=== PATIENT | male | born 1970 | race Caucasian/White ===

== ENCOUNTER → 2018-05-20 | Outpatient (CLI) | payer BC, OTHER ==
[~2018-05-20] MED LIST: ADVAIR 500-501 EACH INH; AMBIEN 10 MG TA10 MG PO; DOXYCYCLINE 10100 MG PO; SINGULAIR 10 MG10 M1 PO; VENTOLIN HFA INH8 GM INH; VICODIN 5-5001 EACH PO
--- NOTE | 2018-05-21 08:37 | P ---
[facility] [place] [address] PROCEDURE REPORT Name: KAMRAN AQUINO [id number] Admission: 05/20/18 Attend Phys: Alexis Junior MD Discharge: Date of : 68 Report #: [id number] THIS REPORT FOR: //name// CC: Alexis Street DO BRIEF HISTORY: The patient is a 47-year-old male with multiple problems including left upper quadrant pain. He also has reflux disease and has a previous Angie fundoplication. In addition, he has intermittent solid-food dysphagia. He has common variable immune deficiency syndrome. He also has central sleep apnea. PREOPERATIVE DIAGNOSIS: Left upper quadrant pain and dysphagia. POSTOPERATIVE DIAGNOSES: 1. Mild bulbar duodenitis with a few small duodenal bulbar erosions. 2. Diffuse gastritis, previously noted. 3. Changes of Angie fundoplication. 4. Dysphagia. MEDICATIONS: Deep sedation with propofol per anesthesia. SPECIMEN: Small bowel biopsies to rule out Giardia. ESTIMATED BLOOD LOSS: 3 mL. PROCEDURE: EGD with biopsy, Strange dilation. FINDINGS: Prior to propofol sedation, procedure of upper endoscopy was discussed with the patient as well as potential risks and its complications. He indicates he understands and desires to proceed. DESCRIPTION OF PROCEDURE: With the patient in left lateral decubitus position, the Olympus video endoscope was inserted in the cervical esophagus under direct vision without difficulty. Examination of this organ through its entire length revealed normal esophageal mucosa down the squamocolumnar junction. Squamocolumnar junction was inspected and noted to be unremarkable. No strictures or masses were seen. Hiatus hernia was not seen. The scope was advanced into the stomach, was examined on end view as well as retroflexed views. There was a diffuse gastritis with linear striations in the antrum of the stomach. This has been noted previously and previous biopsies were negative for H. pylori and those were not repeated. On retroflexion, there were noted to be changes consistent with a Angie fundoplication. No other abnormalities were seen. The pylorus, duodenal bulb and postbulbar duodenal sweep were inspected. There were noted to be couple tiny erosions in the duodenal bulb. However, the duodenal sweep down the third portion was otherwise unremarkable. Due to his [facility] [address] [place] [address] PROCEDURE REPORT Name: KAMRAN AQUINO Room #: REG [facility] Jonna#: [id number] Admission: 05/20/18 Attend Phys: Alexis Junior MD Discharge: Date of : 68 Report #: [id number] history of common variable immune deficiency syndrome, biopsies were obtained of the small bowel in particular to evaluate for Giardia. At that point, scope was slowly withdrawn and careful circumferential views confirmed the above findings. The patient tolerated the procedure well. Subsequently, he was dilated with passage of a 52-Welsh Strange dilator. There was no resistance. CONDITION OF THE PATIENT UPON DISCHARGE: Following the procedure, the patient is drowsy and prepared for colonoscopy. INSTRUCTIONS TO THE PATIENT AND FAMILY AT THE TIME OF DISCHARGE: He has had a left upper quadrant pain. I do not see any lesions to explain his pain. We will place him on pantoprazole 40 mg daily empirically. If he has improvement, he may continue on a long-term basis. He is to return for dilation on an as-needed basis. We will proceed with colonoscopy at this time. <ELECTRONICALLY SIGNED> By: Alexis Junior MD 05/21/18 0837 1021 [id number] Alexis Junior MD /nt
--- NOTE | 2018-05-21 08:37 | P ---
[facility] [place] [address] PROCEDURE REPORT Name: KAMRAN AQUINO Room #: REG [facility].#: [id number] Admission: 05/20/18 Attend Phys: Alexis Junior MD Discharge: Date of : 68 Report #: [id number] THIS REPORT FOR: //name// CC: Alexis Blackwood BRIEF HISTORY: The patient is a 47-year-old male who has had a change in bowel habits. He has periods of constipation and also has periods of diarrhea. He reports intermittent rectal bleeding with blood per rectum about every third to fourth stools. PREOPERATIVE DIAGNOSES: 1. Change in bowel habits. 2. Rectal bleeding. POSTOPERATIVE DIAGNOSIS: Multiple colon polyps. MEDICATIONS: Deep sedation with propofol per anesthesia. SPECIMENS: 1. Cecal polyp. 2. Proximal transverse colon polyp. 3. Diminutive polyp at 60 cm. ESTIMATED BLOOD LOSS: 3 mL. PROCEDURE: Colonoscopy to cecum and terminal ileum with saline-assisted snare polypectomy and biopsy. FINDINGS: Prior to propofol sedation, procedure of colonoscopy discussed with the patient as well as potential risks and its complications. He indicates he understands and desires to proceed. DESCRIPTION OF PROCEDURE: With the patient in left lateral decubitus position, the Olympus video colonoscope was introduced in the rectum and advanced under direct vision to the cecum. Done with minimal difficulty. The cecum was identified by the ileocecal valve and the appendiceal orifice. I was able to visualize the distal segment of the terminal ileum, which was inspected and noted to be unremarkable. At that point, scope was slowly withdrawn and careful circumferential views were obtained. Upon slow withdrawal of the scope, the prep was excellent. The mucosa was within normal limits, normal vascular pattern, normal light reflex. Within the cecum, there was a flat irregular-shaped polyp that was about 8-10 mm in greatest dimension. It was elevated with saline and removed with a single pass by cold snare polypectomy. After polypectomy, the edges were inspected and noted to be free of polypoid tissue. There was good hemostasis. The scope was further withdrawn and in the [address] [address] PROCEDURE REPORT Name: KAMRAN AQUINO Room #: REG [facility] Coyle#: [id number] Admission: 05/20/18 Attend Phys: Alexis Junior MD Discharge: Date of : 68 Report #: [id number] proximal transverse colon, a 6-8 mm sessile polyp draped over the edge of a fold was removed by cold snare polypectomy. Scope was further withdrawn and in the descending colon at about 60 cm, a diminutive polyp was seen and removed with biopsy forceps. Scope was further withdrawn and no additional abnormalities were seen. Specifically in view of his change in bowel habits and rectal bleeding, there was no endoscopic evidence of inflammatory bowel disease. The polyps were too small to be responsible for significant rectal bleeding. Scope was withdrawn in the rectum. Upon retroflexion, no abnormalities were seen. Scope was withdrawn. The patient tolerated the procedure CONDITION OF THE PATIENT UPON DISCHARGE: Following procedure, the patient drowsy and will be discharged home when fully ambulatory. INSTRUCTIONS TO THE PATIENT AND FAMILY AT THE TIME OF DISCHARGE: Polyps removed as described above. We will follow up on the path report. If all 3 are adenomatous or serrated adenomas, he should return in 3 years, otherwise have him return in 5 years for followup colonoscopy. As far as his irregular bowel habits with bleeding, I do not find evidence of inflammatory bowel disease. We will also have him Linzess 290 mcg daily as needed for constipation. If he continues to have difficulties, return to see me in followup in the office. As far as the bleeding, it was likely coming from the anal canal and he may use a hemorrhoidal preparation as needed for management of anal canal lesions. He will otherwise return to the care of Dr. Trino Street. Withdrawal time from the cecum was 16 minutes 55 seconds including the polypectomies. <ELECTRONICALLY SIGNED> By: Alexis Junior MD 05/21/18 0837 1059 1116 Alexis Junior MD /nt
--- NOTE | 2018-05-24 17:06 | PATH ---
[facility] [place] [address] PATHOLOGY RPT PROCEDURE Name: LUIS AQUINO Room #: REG [facility] Danny.#: [id number] Admission: 05/20/18 Date of : 68 Discharge: Report #: [id number] Path Case #: [id number] [facility] Accession Number: [id number] . 01 Material submitted: . PART A: DUODENAL BIOPSY R/O GIARDIA (HX COMMON VARIABLE IMMUNE DEFICIENCY) PART B: CECAL POLYP PART C: PROXIMAL TRANSVERSE COLON POLYP PART D: COLON POLYP 60CM . 01 Clinical history: . Pre-OP DX: Change in bowel habits, rectal bleeding, Hx GERD, Hx colon polyps, dysphagia Post-OP DX: Duodenitis, gastritis, dysphagia, colon polyps, please refer to requisition for additional information . 02 Diagnosis: A. Small bowel mucosa, duodenum rule out Giardia, endoscopic biopsy: - Acute and active duodenitis with focal surface ulceration. - No organisms identified. - Negative for villous blunting or increase in intraepithelial lymphocytes. - Negative for dysplasia or malignancy. . B. Polyp, cecal polyp, endoscopic biopsy: - Tubular adenoma. - Negative for high grade dysplasia. . C. Polyp, proximal transverse polyp, endoscopic biopsy: - Hyperplastic polyp. - Negative for dysplasia. . D. Polyp, colon polyp 60 cm, endoscopic biopsy: - Tubular adenoma admixed with hyperplastic changes. - Negative for high grade dysplasia. LBQ/05/21/2018 . 02 Comment: Findings noted in the duodenum biopsy tissue are suggestive of nonspecific duodenitis with ulceration. There are no giardia or other parasitic organisms present. There are no granulomata or viral inclusions present. A Giemsa special stain is ordered on block A1 and it shows no definite Giardia or Giardia-like organisms. . Dr. Eulalio Hudson has seen medical field representative slide of Part A and concurs with my interpretation. (IUV/db; 05/21/2018) [address] [address] PATHOLOGY RPT PROCEDURE Name: LUIS AQUINO Room #: REG CLI Jonna#: [id number] Admission: 05/20/18 Date of : 68 Discharge: Report #: [id number] Path Case #: [id number] . 02 Electronically signed: . Emily Hernández MD, Pathologist NPI- [id number] . 01 Gross description: . A. Received in formalin labeled "Luis Aquino, duodenum biopsy, rule out Giardia," are multiple segments of neal soft tissue measuring 1.4 x 0.5 x 0.1 cm in aggregate dimensions. The specimen is filtered and entirely submitted in cassette A1. . B. Received in formalin labeled "Luis Aquino, cecal polyp," are 2 segments of neal soft tissue measuring 1.5 x 0.7 x 0.5 cm in aggregate dimensions and ranging from 0.5 to 0.8 cm in maximum dimension. The specimen is submitted entirely in cassette B1. . C. Received in formalin labeled "Luis Aquino, proximal transverse colon polyp," is a single segment of neal soft tissue measuring 0.6 cm in maximum dimension. The specimen is entirely submitted in cassette C1. . D. Received in formalin labeled "Luis Aquino, colon polyp 60 cm," is a single segment of neal soft tissue measuring 0.3 cm in maximum dimension. The specimen is entirely submitted in cassette D1. (TSD; 05/20/2018) TOB/TOB . 02 Pathologist provided ICD-10: K29.80, K26.9, D12.0, K63.5, D12.6 . 02 CPT . 463798, [id number], 506941, [id number], 916060 Specimen Comment: A courtesy copy of this report has been sent to Specimen Comment: [phone], . Specimen Comment: Report sent to / DR ALMONTE Performed at: [address], [place], [place] [id number] MD Saul Haddad MD Phone: [phone] Performed at: [address] [id number] MD Emily Hernández MD Phone: [phone]
== END | disposition home or self-care (01) ==
LOC: GI 08:46
DX: D12.0 Benign neoplasm of cecum (principal); D12.4 Benign neoplasm of descending colon; K63.5 Polyp of colon; K29.80 Duodenitis without bleeding; K26.9 Duodenal ulcer, unspecified as acute or chronic, without hemorrhage or perforation; R13.19 Other dysphagia; K21.9 Gastro-esophageal reflux disease without esophagitis; Z88.2 Allergy status to sulfonamides; Z86.010 Personal history of colon polyps; Z79.899 Other long term (current) drug therapy; Z98.890 Other specified postprocedural states
CPT/HCPCS: 62110; 62900

== ENCOUNTER → 2019-11-11 | Outpatient (CLI) | payer OTHER | LOC: LAB 08:33 | PROVIDERS: ATTEND Anesthesiology | DX: Z01.812 Encounter for preprocedural laboratory examination (principal); Z11.59 Encounter for screening for other viral diseases ==